=== PATIENT | male | born 1965 | race Caucasian/White ===

== ENCOUNTER → 2021-05-06 | Outpatient (CLI) | payer BC ==
[~2021-05-06] MED LIST: ATOR10TA PO; CARV6.252 PO; CIPR500T87 PO; CLIN300C9 PO; DULA1.5P INJ; EMPA25TA PO; GABA-826 PO; GABA300C PO; GLIM1TAB7 PO; IBRU280T PO; LEVO100T PO; LEVO137T2 PO; LISI-167 PO; METF500T17 PO; PIOG30TA68 PO; SITA1TAB5 PO; SULF-169 PO; TAMS-11 PO
[2021-05-06 15:29] LABS: BASOPHILS % (AUTO) 1 % (0-1); EOSINOPHILS % (AUTO) 3 % (1-7); LYMPHOCYTES % (AUTO) 14 % (22-44); MEAN CORPUSCULAR HEMOGLOBIN 28.8 pg (27.5-34.5); MEAN CORPUSCULAR HGB CONC 33.4 g/dL (33.2-36.2); MEAN PLATELET VOLUME 9.3 fL (7.4-10.4); MONOCYTES % (AUTO) 10 % (2-9); NEUTROPHILS % (AUTO) 74 % (42-75); PLATELET COUNT 118 x10^3/uL (130-400)
[2021-05-06 15:31] LABS: MICROSCOPIC AUTO
[2021-05-06 15:40] LABS: ALBUMIN 3.8 g/dL (3.4-5.0); ANION GAP 3 mmol/L (5-15); CALCIUM 8.5 mg/dL (8.5-10.1); CHLORIDE 111 mmol/L (98-107)
[2021-05-06 15:43] LABS: ALANINE AMINOTRANSFERASE 22 U/L (12-78); ALKALINE PHOSPHATASE 90 U/L (45-117); BILIRUBIN,TOTAL 0.9 mg/dL (0.2-1.0); CREATININE 0.76 mg/dL (0.7-1.3); TOTAL PROTEIN 6.7 g/dL (6.4-8.2)
== END | disposition home or self-care (01) ==
LOC: STAR 14:26
PROVIDERS: ATTEND Urology
DX: Z01.818 Encounter for other preprocedural examination (principal); N21.0 Calculus in bladder
CPT/HCPCS: 36415; 80053; 81001; 85025; 87086; 93005

== ENCOUNTER 2021-05-13 07:00 | Day surgery (SDC) | payer BC, OTHER ==
[~2021-05-13] VITALS: Ht 190.5 cm; Wt 96.4 kg
[2021-05-13 07:43] VITALS: BP 148/76
[2021-05-13] MEDS ORDERED: OXYcodone 5 MG/5 ML ORAL.SOL UDC PO PRN (08:00)
[2021-05-13] MEDS ORDERED: LACTATED RINGERS 1,000 ML IV SCH (08:00)
[2021-05-13] MEDS ORDERED: CHLORHEXIDINE 15 ML UDC PO ONE (08:00)
[2021-05-13] MEDS ORDERED: LABETALOL 5MG/ML, 20ML IV PRN (08:00)
[2021-05-13] MEDS ORDERED: ONDANSETRON 2MG/ML, 2ML IVPush PRN (08:00)
[2021-05-13] MEDS ORDERED: HYDROmorphone 1 MG/ML, 1ML INJ IVPush PRN (08:00)
[2021-05-13] MEDS ORDERED: ACETAMINOPHEN 325 MG TABLET PO PRN (08:00)
[2021-05-13] MEDS ORDERED: PROMETHAZINE 25 MG/ML, 1ML IVPush PRN (08:00)
[2021-05-13] MEDS ORDERED: FENTANYL PF 100 MCG/2ML IV PRN (08:00)
[2021-05-13] MEDS ORDERED: hydrALAzine 20 MG/ML, 1ML IV PRN (08:00)
[2021-05-13] MEDS ORDERED: EPHEDRINE 50 MG/ML, 1ML IVPush PRN (08:00)
[2021-05-13] MEDS ORDERED: OMNIPAQUE 350 MG/ML, 50 ML BOTTLE ONE (08:08)
[2021-05-13] MEDS ORDERED: FENTANYL PF 100 MCG/2ML ONE ×2 (08:15→08:34)
[2021-05-13] MEDS ORDERED: MIDAZOLAM 1 MG/ML, 2ML ONE (08:15)
[2021-05-13] MEDS ORDERED: ONDANSETRON 2MG/ML, 2ML ONE (08:17)
[2021-05-13] MEDS ORDERED: DEXAMETHASONE 4 MG/ML, 1ML ONE (08:17)
[2021-05-13] MEDS ORDERED: PROPOFOL 10 MG/ML, 20ML ONE (08:17)
[2021-05-13] MEDS ORDERED: CEFAZOLIN 1,000 MG ONE (08:17)
[2021-05-13] MEDS ORDERED: SODIUM CHLORIDE 0.9% PF 10ML ONE (08:38)
[2021-05-13] MEDS ORDERED: LIDOCAINE-MPF 2% ,5ML ONE (08:38)
[2021-05-13] MEDS ORDERED: OPIUM/BELLADONNA SUPP.RECT 16.2-30 MG ONE (09:34)
[2021-05-13] MEDS ORDERED: OPIUM/BELLADONNA SUPP.RECT 16.2-30 MG PR PRN (10:00)
== END 2021-05-13 11:30 | disposition home or self-care (01) ==
LOC: OUT 07:00
PROVIDERS: ATTEND Urology
DX: N32.89 Other specified disorders of bladder (principal); N21.0 Calculus in bladder; N30.90 Cystitis, unspecified without hematuria; N40.0 Benign prostatic hyperplasia without lower urinary tract symptoms; E11.9 Type 2 diabetes mellitus without complications; I10 Essential (primary) hypertension; E78.5 Hyperlipidemia, unspecified; Z79.84 Long term (current) use of oral hypoglycemic drugs; Z79.890 Hormone replacement therapy; Z79.899 Other long term (current) drug therapy; Z87.440 Personal history of urinary (tract) infections
CPT/HCPCS: 52240; 82962; 88305; 88342; J0690; J1100; J2250; J2405; J2704; J3010; J7120; Q9967